=== PATIENT | female | born 1985 | race Hispanic/Latino ===

== ENCOUNTER 2022-06-18 13:45 | Outpatient (CLI) | payer MEDICAID, OTHER | END 2022-06-18 13:46 | disposition home or self-care (01) | LOC: CSHULT 13:45 | PROVIDERS: ATTEND Family Medicine | DX: O09.522 Supervision of elderly multigravida, second trimester (principal); Z3A.21 21 weeks gestation of pregnancy | CPT/HCPCS: 76805 ==

== ENCOUNTER 2022-10-13 12:20 | Day surgery (SDC) | payer MEDICAID, OTHER ==
[2022-10-13 13:19] VITALS: BMI 35.1
[2022-10-13] MEDS ORDERED: hydrALAZINE 20 MG/ML VIAL SLOW IVP PRN (13:31)
== END 2022-10-13 14:20 | disposition home or self-care (01) ==
LOC: CSHLD/OP 12:20
PROVIDERS: ATTEND Family Medicine
DX: O47.1 False labor at or after 37 completed weeks of gestation (principal); O24.419 Gestational diabetes mellitus in pregnancy, unspecified control; O09.523 Supervision of elderly multigravida, third trimester; Z87.410 Personal history of cervical dysplasia; Z79.899 Other long term (current) drug therapy; Z3A.37 37 weeks gestation of pregnancy